=== PATIENT | female | born 1980 | race African-American/Black ===

== ENCOUNTER 2017-03-08 10:59 | Emergency (ER) | payer OTHER ==
[~2017-03-08] VITALS: Ht 167.6 cm; Wt 79.5 kg
[2017-03-08 11:01] VITALS: Ht 167.6 cm; Wt 79.5 kg
[2017-03-08] MEDS ORDERED: IBUPROFEN 800 MG TAB PO ONE (11:30)
[2017-03-08 11:41] VITALS: BP 110/83; PULSE 70; RESP 17
--- NOTE | 2017-03-08 11:50 | RADRPT ---
PROCEDURE: US Lower extremity Venous. CLINICAL INDICATION: Right leg edema TECHNIQUE: Multiple sonographic images of the right lower extremity deep venous system was obtaine d utilizing grayscale, color-flow, compressive sonography and doppler imaging with augmentation. Th e images were reviewed on a PACS workstation. COMPARISON: None. FINDINGS: There is normal compressibility and flow within the right common femoral, femoral, posterior tibial, peroneal and popliteal veins. RPTAT: AA IMPRESSION: No sonographic evidence for deep venous thrombosis. .Flo Rivera MD, MD Date Time Electronically viewed and signed by .Flo Rivera MD, MD on 03/08/2017 11:49 .S/
[2017-03-08] MEDS ORDERED: IBUP-1542 PO (11:58)
--- NOTE | 2017-03-08 13:31 | ERD ---
ER Documentation Chief Complaint Date/Time DATE: 03/08/17 TIME: 13:30 Chief Complaint sent by pcp possible PE ( right leg pain) HPI Patient is a 36-year-old female with no medical problems who presents with right leg pain and swelling. She says that her right leg feels "like a knot" in her right calf. The patient has right leg swelling. She said the symptoms started last night after she was wearing high heels. She denies chest pain or shortness of breath. She tried ice packs. She was sent by her doctor for ultrasound of the leg. She denies any trauma. ROS All systems reviewed and are negative except as per history of present illness. Medications Home Meds Active Scripts Ibuprofen* (Motrin*) 600 Mg Tab, 600 MG PO Q6H Y for PAIN AND OR ELEVATED TEMP, #30 TAB Prov:JEM CHATMAN MD 03/08/17 Allergies Allergies: Coded Allergies: No Known Allergy (Unverified , 03/08/17) PMhx/Soc Hx Miscellaneous Medical Probl: Yes (DVT) Hx Alcohol Use: Yes Hx Substance Use: No Hx Tobacco Use: No Smoking Status: Never smoker FmHx Family History: diabetes Physical Exam Vitals Vital Signs Date Time Temp Pulse Resp B/P Pulse Ox O2 Delivery O2 Flow Rate FiO2 03/08/17 11:41 70 17 110/83 100 Room Air 03/08/17 11:01 98.5 62 19 124/82 100 Physical Exam Const: No acute distress Head: Atraumatic Eyes: Normal Conjunctiva ENT: Normal External Ears, Nose and Mouth. Neck: Full range of motion..~ No meningismus. Resp: Clear to auscultation bilaterally Cardio: Regular rate and rhythm, no murmurs Abd: Soft, non tender, non distended. Normal bowel sounds Skin: No petechiae or rashes Back: No midline or flank tenderness Ext: Tenderness of the right calf without obvious swelling compared to the left Neur: Awake and alert Psych: Normal Mood and Affect Results 24 hrs Current Medications Medications (Trade) Dose Ordered Sig/Ericka Route PRN Reason Start Time Stop Time Status Last Admin Dose Admin Ibuprofen (Motrin) 800 mg ONCE ONCE PO 03/08/17 11:30 03/08/17 11:31 DC 03/08/17 12:12 Procedures/MDM Ultrasound the right lower extremity negative for DVT. Smoking Cessation Therapy: Pt. was lectured for greater than 3 minutes on the health risks of continued smoking and the benefits of cessation. Patient is a 36-year-old female who presents with right leg pain. Ultrasound shows no signs of DVT. She has no trauma. There is no sign of infectious process at this time. I believe outpatient management is appropriate. The patient will be given a prescription for ibuprofen and can return if symptoms worsen. The patient understands the plan and is okay for discharge at this time. Departure Diagnosis: Primary Impression: Leg cramp Additional Impression: Pain of right leg Condition: Fair Patient Instructions: Possible Causes of Low Back or Leg Pain Referrals: [facility] YOU HAVE RECEIVED A MEDICAL SCREENING EXAM AND THE RESULTS INDICATE THAT YOU DO NOT HAVE A CONDITION THAT REQUIRES URGENT TREATMENT IN THE EMERGENCY DEPARTMENT. FURTHER EVALUATION AND TREATMENT OF YOUR CONDITION CAN WAIT UNTIL YOU ARE SEEN IN YOUR DOCTORS OFFICE WITHIN THE NEXT 1-2 DAYS. IT IS YOUR RESPONSIBILITY TO MAKE AN APPOINTMENT FOR FOLOW-UP CARE. IF YOU HAVE A PRIMARY DOCTOR --you should call your primary doctor and schedule an appointment IF YOU DO NOT HAVE A PRIMARY DOCTOR YOU CAN CALL OUR PHYSICIAN REFERRAL HOTLINE AT IF YOU CAN NOT AFFORD TO SEE A PHYSICIAN YOU CAN CHOSE FROM THE FOLLOWING [facility] [address] [facility]. [facility] [address] [facility]. [facility] [address] [facility] [facility] [address] [facility] [address] [facility]. [facility]. [address] Additional Instructions: Call your primary care doctor TOMORROW for an appointment during the next 1-2 days.See the doctor sooner or return here if your condition worsens before your appointment time. JEM CHATMAN MD Mar 08, 2017 13:31
== END 2017-03-08 12:17 | disposition home or self-care (01) ==
LOC: E/R 10:59
DX: R25.2 Cramp and spasm (principal)
CPT/HCPCS: 93971